=== PATIENT | female | born 1975 ===

== ENCOUNTER 2024-12-25 20:21 | Emergency (ER) | payer BC, SELFPAY ==
--- NOTE | 2024-12-25 20:25 | ED.GENADULT ---
HPI - General Adult General Time Seen by Provider: 20:26 Date Seen: 12/25/24 Chief complaint: Back Injury/Pain Stated complaint: Burning in back, pain Time Seen by Provider: 12/25/24 20:25 Source: patient, RN notes reviewed and old records reviewed Mode of arrival: ambulatory Limitations: no limitations History of Present Illness HPI narrative: 49-year-old female who presents today with sensitivity and burning pain of the low back on the left side. This is been going on for about one week. She denies any injury, pain no radiation of pain into the legs, no bowel or bladder incontinence. She does note that shortly before this pain she had a couple of sore areas on the left side of the perirectal area which her looked and said had the appearance of blisters. These since have improved. She is not doing anything for her pain so far. She denies any fevers or chills. Related Data Home Medications ?Medication ?Instructions ?Recorded ?Confirmed clonazepam 0.5 mg tablet 0.5 mg PO BID 12/25/24 12/25/24 olanzapine 5 mg tablet 5 mg PO QHS 12/25/24 12/25/24 sertraline 25 mg tablet (Zoloft) 25 mg PO DAILY 12/25/24 12/25/24 Previous Rx's ?Medication ?Instructions ?Recorded gabapentin 300 mg capsule 300 mg PO TID #90 caps 12/25/24 lidocaine 5 % topical patch 1 patch topical DAILY #15 ea 12/25/24 Allergies Allergy/AdvReac Type Severity Reaction Status Date / Time hydromorphone (From Dilaudid) AdvReac Confusion Verified 12/25/24 20:34 nalbuphine (From Nubain) AdvReac Confusion Verified 12/25/24 20:34 [facility] Social History Smoking Status: Never smoker Do you use any of these nicotine containing products: None Second hand tobacco smoke exposure: No How often do you have a drink containing alcohol: monthly or less AUDIT-C Alcohol total score: 1 Non-prescribed substance use: denies use service: No Exam Narrative: Exam Narrative: General: well nourished , NAD Head: Atraumatic and normocephalic ENT: External ears and external nose are normal Eyes: Conjunctiva clear, pupils are equal reactive, external ocular motions are intact Neck: Full spontaneous range of motion of the neck Lungs: No respiratory distress Musculoskeletal: No tenderness or deformity Neurologic: No gross focal neurologic deficits. Hyperesthesia of the left low lumbar/upper sacral area with no rash. Skin: Two ruptured erythematous vesicles of the left medial gluteal cleft, no induration Psych: Mood and affect are appropriate Const: Vital Signs, click to edit/add: Vital Signs - 24 hr 12/25/24 20:29 Temperature 97.3 F L Pulse Rate [Pulse Oximeter] 88 Blood Pressure [Ri ght Upper Arm] 125/64 Pulse Oximetry 97 Oxygen Delivery Me thod Room Air Course Course ED Course: Reviewed most recent primary care visit from November 03 he does which was routine physical, that time no specific medical concerns. Also reviewed prior emergency department visit from August 31 which was for lower extremity swelling, August 09 which was for suicide ideation and anxiety, patient was admitted at that time. Patient presents today with low back pain which she describes as burning and hypersensitive along with a couple of ruptured vesicles in the gluteal cleft. Clinically patient's symptoms certainly would fit with post shingles neuropathic pain, and the description of the vesicles in the gluteal cleft could be from zoster. Patient declines oral steroids because they make her jaw being anxious, she is agreeable to a dose of IM steroid. Patient will be started on gabapentin and lidocaine patch as well. Given the symptoms started a week ago, will defer antivirals at this time. Vital Signs Vital signs: Initial Vital Signs Temperature 97.3 F L 12/25/24 20:29 Temperature Source Temporal Artery Scan 12/25/24 20:29 Pulse Rate 88 12/25/24 20:29 Blood Pressure 125/64 12/25/24 20:29 Blood Pressure Mean 84 12/25/24 20:29 Pulse Oximetry 97 12/25/24 20:29 Oxygen Delivery Method Room Air 12/25/24 20:29 Vital Signs Temperature 97.3 F L 12/25/24 20:29 Pulse Rate 88 12/25/24 20:29 Blood Pressure 125/64 12/25/24 20:29 Pulse Oximetry 97 12/25/24 20:29 Oxygen Delivery Method Room Air 12/25/24 20:29 Temperature 97.3 F L 12/25/24 20:29 Pulse Rate 88 12/25/24 20:29 Blood Pressure 125/64 12/25/24 20:29 Pulse Oximetry 97 12/25/24 20:29 Oxygen Delivery Method Room Air 12/25/24 20:29 Discharge Plan Discharge Clinical Impression: Neuropathic pain Patient Disposition: Home, Self-Care Condition: Stable Instructions: Paresthesia (ED) Additional Instructions: Your symptoms today are related to irritation of a nerve in your back. This could be from compression, given the rash with blisters that was present, this could also be from shingles. Apply pain patches to low back as prescribed, take gabapentin as prescribed to help with pain. Follow-up with your primary care doctor as needed. Since it has been a week since the beginning of your symptoms, no antivirals are prescribed today. Activity Level: Activity as Tolerated Discharge Diet: Regular Prescriptions: New gabapentin 300 mg capsule 300 mg PO TID Qty: 90 0RF lidocaine 5 % adhesive patch,medicated 1 patch topical DAILY Qty: 15 0RF Rx Instructions: leave on most painful area for up to 12 hrs No Action clonazepam 0.5 mg tablet 0.5 mg PO BID sertraline [Zoloft] 25 mg tablet 25 mg PO DAILY olanzapine 5 mg tablet 5 mg PO QHS Stand Alone Forms: [employer] Info Instructions
[2024-12-25 20:29] VITALS: BP 125/64; PULSE 88; TEMP 36.3; O2SAT 97
--- OUTSIDE RECORDS SUMMARY | 2024-12-25 20:58 | XMS_ITS | Clinical Summary ---
Author Organization [facility] Address [address] [address] Phone Care Team Providers Care Residential Housekeeper Name Role Phone Elsewhere, Pcp Primary Care Provider Unavailabl e Allergies Active Allergy Reactions Criticality Noted Date Comments Hydromorphone Hallucinations Medium 05/11/2021 Medications * This document contains information received from the source organization and may not represent a complete record from that organization. clonazePAM (KlonoPIN) 0.5 MG tablet Take 0.5 mg by mouth two times a day. Active Probiotic Product (PROBIOTIC OR) Take by mouth. Active Multiple Vitamin (MULTIVITAMIN OR) Take by mouth. Activ e HYDROcodone-ac etaminophen ([employer]) 5-325 MG oral tablet Take 1 Tablet by mouth every six hours as needed for Pain. Limit acetaminophen to 4000 mg per day from all sources. 12 Tablet Active sertraline (Zoloft) 25 MG tablet Take 25 mg by mouth one time a day. Active Magnesium 500 MG capsule Take by mouth. Acti ve VITAMIN D OR Take 10,000 Units by mouth one time a day. Active Folic Acid 5 MG capsule Take by mouth. Acti ve OLANZapine (ZyPREXA) 5 MG tablet Take 1 Tablet by mouth every evening. 30 Tablet 08/20/2024 1:30 PM SPRAY WORKER 4 Active Active Problems Problem Noted Date Diagnosed Date Borderline personality disorder 08/16/2024 Severe episode of recurrent major depressive disorder, without psychotic features 08/14/2024 Resolved Problems Problem Noted Date Diagnosed Date Resolved Date Suicidal ideation 08/14/2024 08/20/2024 Immunizations Name Administration Dates Next Due Influenza Trivalent Preservative Free 08/15/2024 () Social History Tobacco Use Types Packs/Day Years Used Date Smoking Tobacco: Never Smokeless Tobacco: Never Tobacco Cessation:Counseling Given: Not Answered Alcohol Use Standard Drinks/Week Comments Not Currently 0 (1 standard drink = 0.6 oz pur e alcohol) [facility] Utilities Answer Date Recorded In the past 12 months has th e electric, gas, oil, or water company threatened to shut off services in your home? No 08/14/2024 Hunger Vital Sign Answer Date Recorded Within the past 12 months, y ou worried that your food would run out before you got the money to buy more. Never true 08/14/20 24 Within the past 12 months, t he food you bought just didn't last and you didn't have money to get more. Never true 08/14/2024 PRAPARE - Transportation Answer Date Re corded In the past 12 months, has l ack of transportation kept you from medical appointments or from getting medications? No 05/2024 In the past 12 months, has l ack of transportation kept you from meetings, work, or from getting things needed for daily living? No 08/14/2024 Housing Stability Vital Sign Answer Derick e Recorded In the last 12 months, was t here a time when you were not able to pay the mortgage or rent on time? No 08/14/2024 In the past 12 months, how m any times have you moved where you were living? 0 08/14/2024 At [facility] time in the [facility] were you homeless or living in a skilled nursing (including now)? No 08/14/2024 EH IP Custom IPV Answer Date Recorded Do you feel UNSAFE in any of your personal relationships with your family members or any other acquaintances? No 2023 Comments No Sex and Gender Information Value Date Recorded Sex Assigned at Not on file Legal Sex Female 11:06 AM SPRAY WORKER Gender Identity Not on file Sexual Orientation Not on file Obstetrics History Last Filed Vital Signs Vital Sign Reading Time Taken Comments Blood Pressure 139/83 08/31/2024 5:16 PM SPRAY WORKER Pulse 96 08/31/2024 5:15 PM SPRAY WORKER Temperature 36.3 C (97.4 F) 08/31/2024 2:56 PM SPRAY WORKER Respiratory Rate 16 08/31/2024 5:15 PM SPRAY WORKER Oxygen Saturation 93% 08/31/2024 5:15 PM SPRAY WORKER Inhaled Oxygen Concentration - - Weight 106.2 kg (234 lb 2.1 oz) 08/31/2024 4:25 PM SPRAY WORKER Height 162.6 cm (5' 4) 08/14/2024 1:21 PM SPRAY WORKER Body Mass Index 40.19 08/14/2024 1:21 PM SPRAY WORKER Plan of Treatment Health Maintenance Due Date Last Done Comments CT Colonography 1975 Cervical Cancer Screening 1975 Cologuard 1975 Colonoscopy 1975 Colorectal Cancer Screening 1975 FIT/FOBT 1975 Last pap w/ HPV Testing 1974 Last pap w/o HPV Testing 1974 Sigmoidoscopy 1974 Hepatitis B Vaccine (Standin g Order) (1 of 3 - 19+ 3-dose series) 1993 PERTUSSIS (Standing Order) 1993 TETANUS (Standing Order) 1993 MAMMO,SCREEN 06/10/2023 06/10/2022, 07/14/2019, 03/06/2015 Pneumococcal Vaccine: 50+ yr s (Standing Order) (1 of 1 - PCV) 02/08/2024 Shingrix (Zoster recombinant ) vaccine (Standing Order) (1 of 2) 02/08/2024 COVID-19 Vaccine (1 - 2023-2 5 season) 2024 Influenza Vaccine Seasonal (Standing Order) (#1) 2024 HPV Vaccine (Standing Order) Aged Out No longer eligible based on patient's age to complete this topic Insurance [facility] Advance Directives For more information, please contact: [phone] * Full Code (Latest Code Status on File) Date Activated Date Inactivated Comments 08/14/2024 1:20 PM 08/20/2024 7:02 PM Care Teams Residential Housekeeper Relationship Specialty Start Date End Date Elsewhere, Pcp PCP - General 11/17/01
--- OUTSIDE RECORDS SUMMARY | 2024-12-25 20:58 | XMS_ITS | Clinical Summary ---
Author Organization [facility] Address [address] [place] [id number] Care Team Providers Care Painter Barrel Name Role Phone Becca Alan MD Primary Care Prov ider Allergies Active Allergy Reactions Criticality Noted Date Comments Sulfamethoxazole-Trimeth oprim Itching,Erythema High 09/11/2018 Buspirone Anxiety 08/07/2022 Cephalexin Anxiety,Palpitation s 04/29/2020 Hydromorphone Itching 04/14/2012 Nose itching. Pt states that she tolerated the medication Escitalopram Itching,Other - Describe In Comment Field 06/28/2012 itching Levofloxacin Hives,Rash 04/29/2020 Nitrofurantoin GI Upset 08/07/2022 Nalbuphine Nausea And Vomiting,Anxiety,Dougherty llucinations 04/14/2012 Prednisone Agitation High 09/11/2018 Sertraline *Unknown 04/29/2020 Trazodone Edema 08/07/2022 Medications escitalopram oxalate (LEXAPRO) 10 mg tabletIndication s:Major depressive disorder, recurrent episode, moderate (HC) Take 1 Tablet (10 mg) by mouth every morning. 30 Tablet 1 9:14 AM CDT 01/11/20 21 Active Additional Information Patient taking differently: 5 mgOral Q AM,Weaning off and changing to [place], Reported on 04/11/2024 clonazePAM (KLONOPIN) 0.5 mg tabletIndication s:Generalized anxiety disorder Take 1 tablet by mouth twice daily and 1/2 to 1 tablet daily as needed for anxiety. 90 Tablet 1 9:14 AM CDT 01/10/20 21 Active tirzepatide, weight loss, (Zepbound) 2.5 mg/0.5 mL penIndications:C lass 2 severe obesity with serious comorbidity and body mass index (BMI) of 39.0 to 39.9 in adult, unspecified obesity type (HC) Inject 2.5 mg subcutaneous once weekly. 2 mL 07/26/20 24 Active fluticasone propion-salmeter oL 250-50 mcg/Dose diskus inhalerIndicatio ns:Mild intermittent reactive airway disease with acute exacerbation (HC) Inhale 1 Puff by mouth two times daily. 60 Each 2 12/09/19 25 Active fluticasone propion-salmeter oL (ADVAIR) 250-50 mcg/Dose diskus inhalerIndicatio ns:Mild intermittent reactive airway disease with acute exacerbation (HC) INHALE 1 PUFF BY MOUTH TWO TIMES DAILY. 60 Each 11/10/19 25 025 Discontin ued(Reord er (E-cancel not sent)) Active Problems Problem Noted Date Diagnosed Date Arthralgia of both hands 06/07/2019 Malaise and fatigue 06/07/2019 Dry cough 06/07/2019 Fluid retention in legs 12/25/2018 Dental abscess 12/23/2018 Adjustment disorder with mixed anxiety and depre ssed mood 03/16/2018 Peripheral vertigo 02/20/2017 Acute nonintractable headache 02/20/2017 Nausea and vomiting 02/20/2017 Photophobia 02/20/2017 Nephrolithiasis 08/11/2015 Major depressive disorder, recurrent episode, mo derate 10/17/2013 IVAN (generalized anxiety disorder) 10/17/2013 Generalized anxiety disorder 07/06/2012 Depressive disorder, not elsewhere classified Encounters Date Type Department Care Team Description 12/06/2024 Refill [facility] [address] [place] [address] Armani Coburn MD Refill Request 11/01/2024 Refill [facility] [address] [place] [address] Armani Coburn MD Refill Request (Fluticasone Propion-salmeterol) 10/05/2024 9:25 AM ELEMENTARY [employer]ER Telemedicine [facility] [address] [address] Armani Coburn MD Cough (COUGH/WHEEZING - onset 1 week) 10/05/2024 Travel from Last 3 Months Immunizations Immunization Administration Dates Next Due COVID-19 vaccine (Moderna 100mcg/0.5mL) MD CHRISTIANV 09/19/2021 Influenza, IIV4 06/07/2019 Tdap 11/15/2019 Family History Medical History Relation Name Comments Psychiatric illness Brother ETOH Diabetes Mother Depression, Hyp ercholesteral Psychiatric illness Sister x 3, 1 E ROBIN No Known Problems Son 1 Diabetes type I Son 2 IDDM Relation Name Status Comments Brother Mother Sister Son 1 Alive Son 2 Alive Social History Tobacco Use Types Packs/Day Years Used Date Smoking Tobacco: Never Passive Smoke Exposure: Never Smokeless Tobacco: Never Tobacco Cessation:Counseling Given: No Alcohol Use Standard Drinks/Week Comments No 0 (1 standard drink = 0.6 oz pur e alcohol) PHQ-2 Answer Date Recorded PHQ-2 Score 2 11/07/2018 Social Connections Answer Date Recorded Frequency of Communication with Friends and Fami ly 0 03/21/2024 Financial Resource Strain Answer Date R ecorded Difficulty of Paying Living Expenses 2 03/21/2024 Difficulty of Paying Living Expenses 1 03/21/2024 Food Insecurity Answer Date Recorded Worried About Running Out of Food in the Last Ye ar 1 03/21/2024 Transportation Needs Answer Date Record ed Lack of Transportation (Medical) 1 03/21/2024 Housing Stability Answer Date Recorded Unable to Pay for Housing in the Last Year 1 03/21/2024 Interpersonal Safety Answer Date Record ed Are you being hit, kicked, p ushed or yelled at (see row info)? No 03/16/2024 Interpersonal Safety Abuse 12 - 18 Not on file 03/16/2024 Interpersonal Safety Ambulatory Vulnerability No t on file 03/16/2024 Comments No Sex and Gender Information Value Date Recorded Sex Assigned at Not on file Legal Sex Female 5:54 AM ELEMENTARY [employer] Gender Identity Not on file Sexual Orientation Not on file Obstetrics History Last Filed Vital Signs Vital Sign Reading Time Taken Comments Blood Pressure 102/70 04/11/2024 1:14 PM CDT Pulse 92 04/11/2024 1:14 PM CDT Temperature 36.7 C (98 F) 04/11/2024 1:14 PM CDT Respiratory Rate 14 03/16/2024 7:53 PM CDT Oxygen Saturation 94% 04/11/2024 1:1 4 PM CDT Inhaled Oxygen Concentration - - Weight 104.1 kg (229 lb 9.6 oz) 04/11/2024 1:14 PM CDT with sandals Height 162.6 cm (5' 4) 03/16/2024 3:58 PM CDT Body Mass Index 39.41 03/16/2024 3:58 PM CDT Plan of Treatment Upcoming Encounters Date Type Department Care Team (Late st Contact Info) Description 01/02/2025 1:25 PM CDT Office Visit [facility] [address] [place] [address] Becca Alan MD [address] [place] [address] Health Maintenance Due Date Last Done Comments HIV for age 15-65 1989 Hepatitis C screening for ag e 18-79 02/08/1992 Pap test for age 21-65 1995 BMI (ht and wt on same day) for age 18+ 02/19/2018 02/19/2017, 02/10/2016, 01/20/2016, Additional history exists Lipids for age 45-75 2019 Mammogram for age 45-75 2019 Depression screening for age 12+ 01/28/2022 01/28/2021, 01/27/2021, 12/31/2020, Additional history exists Pneumococcal series for age 50+ (1 of 1 - PCV) 02/08/2024 Zoster (shingles) series for age 50+ (1 of 2) 02/08/2024 COVID-19 vaccine series ( season) 2024 09/19/2021, 01/11/2021, 12/19/2020 Influenza Vaccine (Season Ended) 2025 06/07/20 19 Tetanus booster 11/14/2029 11/15/2019 Colonoscopy through age 75 08/21/2030 08/21/2020 Tdap Completed 11/15/2019 Medical Devices Implanted Type Area Director Of Coding Device Identifier Shelf Expiration Date Model / Serial / Lot Stent Uret [id number] Percuflex Hydroplus - [id number] Implanted:Qty: 1 on 08/12/2015 by Ganga Harvey MD at [facility] Left: Ureter [facility] 04/11/2018 [id number] / / [id number] Description:GTIN#- [id number] Cat #- [id number] Procedures Procedure Name Priority Date/Time Associated Diagnosis Comments COLONOSCOPY 08/21/2020 3:34 PM E[employer]ER from Last 3 Months or Most Recently Relevant to Health Maintenance Results * COLONOSCOPY (08/21/2020 3:34 PM ELEMENT[employer]ER) 08/21/2020 3:34 PM ELEMENTARY [employer] TE[employer]ER Narrative Transcriptions Leo Salgado MD - 08/21/2020 4:01 PM CST Patient Name: Radha Lopez Procedure Date: 08/21/2020 Gender: Female Date of : 1975 Admit Type: Ambulatory Procedure: Colonoscopy Proceduralist: Leo Salgado MD [facility] Referring MD: Ayden S. Schoeneman Indications/Pre-Op Diagnosis: Preoperative assessment, CT scan showed a2.7cm mass at the ileocecal junction in December 2019 and January 2020. Medications: Propofol per Anesthesia Procedure Description: The procedure, indications, potential complications, (bleeding, perforation, infection, adverse medication reaction, missed lesionsor polyps) and alternatives available were explained to the patient, who appeared to understand and indicated this. Opportunity for questionswas provided and informed consent obtained. The colonoscopy was passed through the anus and advanced to thececum, identified by appendiceal orifice and ileocecal valve. Thecolonoscopy was performed without difficulty. The patient tolerated the procedure well. The quality of the bowel preparation was good. Complications: No immediate complications. Estimated Blood Loss & Specimen: Estimated blood loss: none. Specimen collected: None Findings: The perianal and digital rectal examinations were normal. The colon (entire examined portion) appeared normal. The retroflexed view of the distal rectum and anal verge was normaland showed no anal or rectal abnormalities. Impressions/Post-Op Diagnosis: - The entire examined colon is normal. - The distal rectum and anal verge are normal on retroflexion view. - No specimens collected. Recommendation: - Discharge patient to home. - Resume previous diet. - Continue present medications. Moderate Sedation: Moderate (conscious) sedation was personally administered by an anesthesia professional. The following parameters were monitored:oxygen saturation, heart rate, blood pressure, and response to care. Total physician intraservice time was 15 minutes. Leo Salgado MD 08/21/2020 4:01:12 PM Note Initiated On: 08/21/2020 3:34 PM Leo Salgado MD PROCEDURE ORD Final Result from Last 3 Months or Most Recently Relevant to Health Maintenance Insurance [address] [place] [id number] [employer] OF NON-IL-ITS Advance Directives * Full Code (Latest Code Status on File) Date Activated Date Inactivated Comments 09/02/2022 11:47 AM 09/02/2022 4:52 PM Question Answer Comments Code Status Discussion: Unable to Assess Preferences, Provider to review later * Full Code Date Activated Date Inactivated Comments 01/01/2021 4:44 PM 01/10/2021 3:36 PM Question Answer Comments Code Status Discussion: Not Discussed * Full Code Date Activated Date Inactivated Comments 08/21/2020 1:03 PM 08/21/2020 8:02 PM Question Answer Comments Code Status Discussion: Not Discussed * Full Code Date Activated Date Inactivated Comments 06/07/2019 9:09 AM 06/13/2019 3:51 PM Question Answer Comments Code Status Discussion: Not Discussed * Full Code Date Activated Date Inactivated Comments 12/23/2018 8:35 PM 12/26/2018 12:17 PM Question Answer Comments Code Status Discussion: Discussed Care Teams Painter Barrel Relationship Specialty Start Date End Date Becca Alan MD [address] [place] [address] PCP - General Family Practice 12/25/24
[2024-12-25] MEDS: DEXAMETHASONE 10 MG/ML PF IM (20:59)
[2024-12-25] MEDS: LIDOCAINE 5% PATCH 1 PATCH TRANSDERMA (21:00)
== END 2024-12-25 21:30 | disposition home or self-care (01) ==
LOC: ED 20:56
PROVIDERS: Emergency Provider Family Medicine
DX: M79.2 Neuralgia and neuritis, unspecified (principal)
CPT/HCPCS: 99283; A9270; J1100